=== PATIENT | male | born 1990 | race Two or more races ===

== ENCOUNTER 2022-08-04 15:48 | Outpatient (CLI) | payer OTHER ==
--- NOTE | 2022-08-04 16:40 | XRAY Report ---
PROCEDURE: Chest 2 View X-Ray INDICATIONS: CHEST WALL PAIN TECHNIQUE: 2 views of the chest were acquired. COMPARISON: None. FINDINGS: Surgical changes and devices: None. Lungs and pleura: No pleural effusions or pneumothorax. Lungs are clear. Mediastinum: Mediastinal contours are normal. Heart size is normal. Bones and chest wall: No suspicious bony abnormalities. Soft tissues appear unremarkable. IMPRESSION: No acute cardiopulmonary process. Reviewed by: Tobin Frazier on 08/04/2022 4:38 PM PDT Approved by: Tobin Frazier on 08/04/2022 4:38 PM PDT Station ID: [id number]
--- NOTE | 2022-08-04 16:45 | XRAY Report ---
PROCEDURE: Hand 2 View BILAT INDICATIONS: HAND PAIN,BILATERAL TECHNIQUE: 2 views of the hand(s) acquired. COMPARISON: None FINDINGS: Bones: No fractures or dislocations. No suspicious bony lesions. Soft tissues: No suspicious soft tissue calcifications. IMPRESSION: No acute fracture. No osseous lesion. If symptoms and/or clinical suspicion for pathology continue, f urther assessment with repeat plain films, or advanced imaging (e.g., CT, MRI, or bone scan) is recom mended for further assessment. Reviewed by: Guanako Su MD on 08/04/2022 4:44 PM PDT Approved by: Guanako Su MD on 08/04/2022 4:44 PM PDT Station ID: [id number]
== END 2022-08-04 15:49 | disposition home or self-care (01) ==
LOC: DI 15:48
PROVIDERS: ATTEND Nurse Practitioner
DX: R07.89 Other chest pain (principal); M79.642 Pain in left hand; M79.641 Pain in right hand

== ENCOUNTER 2022-08-12 10:15 | Outpatient (CLI) | payer OTHER ==
--- NOTE | 2022-08-12 12:04 | Ultrasound Report ---
PROCEDURE: Abdomen Limited INDICATIONS: CHEST WALL PAIN TECHNIQUE: Real-time scanning was performed of the abdominal and retroperitoneal organs, with image documentatio n. COMPARISON: None. FINDINGS: Targeted ultrasound of the epigastric palpable lump demonstrates no sonographic abnormality. No herni a. IMPRESSION: No sonographic abnormality. Reviewed by: Tobin Frazier on 08/12/2022 12:03 PM PDT Approved by: Tobin Frazier on 08/12/2022 12:03 PM PDT Station ID: [id number]
== END 2022-08-12 10:16 | disposition home or self-care (01) ==
LOC: DI 10:15
PROVIDERS: ATTEND Nurse Practitioner
DX: R07.89 Other chest pain (principal)

== ENCOUNTER 2023-07-23 16:10 | Emergency (ER) | payer OTHER ==
[2023-07-23 16:31] VITALS: BP 137/102; O2SAT 98
--- NOTE | 2023-07-23 17:32 | ED Physician Documentation ---
History of Present Illness - Stated complaint Stated Complaint: SINUS PRESSURE/CONGESTION - Chief complaint Chief Complaint: Heent - History obtained from History obtained from: Patient - Additonal information Additional information: Otherwise healthy 32-year-old gentleman has been sick for a week with prominent sinus pressure, purulent nasal drainage and ear pain as well as some cough. No sick contacts or recent travel. No fevers. PD PAST MEDICAL HISTORY - Past Medical History Past Medical History: No - Past Surgical History Past Surgical History: No - Present Medications Home Medications: Ambulatory Orders Medication Instructions Recorded Confirmed Amox/Clav 875/125 [Augmentin] 1 each PO Q12H #20 tablet 07/23/23 Fluticasone [Flonase] 1 sprays KVNG BID #16 gm 07/23/23 Guaifenesin/Pseudoephedrne HCl 1 each PO BID PRN #20 tab 07/23/23 [Mucinex D ER 600-60 mg Tablet] - Allergies Allergies/Adverse Reactions: Allergies Allergy/AdvReac Type Severity Reaction Status Date / Time No Known Drug Allergies Allergy Verified 07/23/23 16:31 - Social History Does the pt smoke?: No Smoking Status: Never smoker Does the pt drink ETOH?: Yes Does the pt have substance abuse?: No PD ED PE NORMAL - Vitals Vital signs reviewed: Yes - General General: Alert and oriented X 3, No acute distress - HEENT HEENT: Ears normal, Pharynx benign, Other (Bilateral maxillary sinus tenderness) - Neck Neck: Supple, no meningeal sign, No bony TTP - Respiratory Respiratory: No respiratory distress, Clear bilaterally - Abdomen Abdomen: Non tender - Neuro Neuro: Alert and oriented X 3 - Psych Psych: Normal affect Results - Vitals Vitals: Vital Signs - 24 hr 07/23/23 16:25 Temperature 36.7 C Heart Rate 85 Respiratory 16 Rate Blood Pressure 137/102 H O2 Saturation 98 Oxygen O2 Source Room air PD Medical Decision Making - ED course ED course: 32-year-old gentleman with clinical sinusitis. His pain has been bad enough and sick long of that trial of antibiotics is reasonable. Departure - Departure Disposition: 01 Home, Self Care Clinical Impression: Sinusitis Condition: Good Record reviewed to determine appropriate education?: Yes Instructions: ED Sinusitis Abx Tx Prescriptions: Amox/Clav 875/125 [Augmentin] 1 each PO Q12H #20 tablet Fluticasone [Flonase] 1 sprays KVNG BID #16 gm Guaifenesin/Pseudoephedrne HCl [Mucinex D ER 600-60 mg Tablet] 1 each PO BID PRN #20 tab PRN Reason: congestion Comments: I sent your prescription electronically to the [facility] in [place]. You are seen today for a sinus infection, I wrote for antibiotics, steroid nasal spray for the inflammation and a decongestant. Return for new or worsening symptoms. Follow-up with your primary care physician if not better in about a week. Forms: PCP List Discharge Date/Time: 07/23/23 17:41
== END 2023-07-23 17:41 | disposition home or self-care (01) ==
LOC: ED 16:10
DX: J32.9 Chronic sinusitis, unspecified (principal)
CPT/HCPCS: 99283